=== PATIENT | male | born 2000 | race Caucasian/White ===

== ENCOUNTER → 2021-06-02 | Outpatient (CLI) | payer SELFPAY | END | disposition home or self-care (01) | PROVIDERS: Referring Provider Otolaryngology; Visit Provider Otolaryngology | DX: Z11.59 Encounter for screening for other viral diseases (principal); Z03.818 Encounter for observation for suspected exposure to other biological agents ruled out | CPT/HCPCS: 87635; U0005; U0003 ==

== ENCOUNTER 2021-11-09 16:40 | Outpatient (CLI) | payer SELFPAY | END 2021-11-09 23:59 | disposition short-term general hospital (02) | LOC: LABSPEC 16:43 | PROVIDERS: PCP Family Medicine; Referring Provider Otolaryngology; Visit Provider Otolaryngology | DX: Z20.822 Contact with and (suspected) exposure to COVID-19 (principal) | CPT/HCPCS: 87635; U0003; U0005 ==